=== PATIENT | male | born 1990 | race African-American/Black ===

== ENCOUNTER 2022-07-31 00:17 | Emergency (ER) | payer OTHER, MEDICAID ==
[~2022-07-31] VITALS: Ht 185.4 cm; Wt 104.3 kg
[2022-07-31 00:34] VITALS: BP_SYST 129
[2022-07-31] MEDS ORDERED: SULF1TAB48 PO (03:54)
[2022-07-31 04:17] VITALS: BP_SYST 132
== END 2022-07-31 04:15 | disposition home or self-care (01) ==
LOC: SED 00:17
DX: L60.0 Ingrowing nail (principal); R22.41 Localized swelling, mass and lump, right lower limb; Z79.899 Other long term (current) drug therapy
CPT/HCPCS: 99284

== ENCOUNTER 2023-03-15 11:33 | Emergency (ER) | payer OTHER, MEDICAID ==
[~2023-03-15] VITALS: Ht 185.4 cm; Wt 104.3 kg
[~2023-03-15 11:33] MED LIST: SULF1TAB48 PO
[2023-03-15 11:48] VITALS: BP_SYST 128
[2023-03-15] MEDS ORDERED: cefTRIAXone 500 MG in LIDOCAINE 1%, 20 ML MDV 1 ML IM ONE (12:00)
[2023-03-15] MEDS ORDERED: VALA10002 PO (12:03)
[2023-03-15] MEDS ORDERED: DOXY100T2 PO (12:03)
[2023-03-15 13:56] VITALS: BP_SYST 128
== END 2023-03-15 13:56 | disposition home or self-care (01) ==
LOC: SED 11:33
DX: K13.79 Other lesions of oral mucosa (principal); Z11.3 Encounter for screening for infections with a predominantly sexual mode of transmission; Z79.899 Other long term (current) drug therapy
CPT/HCPCS: 99283; 86592; 86701; 86702; 36415; 96372; 87491; J0696

== ENCOUNTER 2024-02-25 11:45 | Emergency (ER) | payer BC, MEDICAID ==
[~2024-02-25] VITALS: Ht 185.4 cm; Wt 95.3 kg
[~2024-02-25 11:45] MED LIST changes: +DOXY100T2 PO; +VALA10002 PO
[2024-02-25 12:01] VITALS: BP_SYST 125; PULSE 89; RESP 18; TEMP 98.2; O2SAT 97
[2024-02-25] MEDS ORDERED: DIPHTH,PERTUSS(ACELL),TET VAC 0.5 ML VIAL (Tdap) I.M. ONE (12:33)
[2024-02-25] MEDS: DIPHTH,PERTUSS(ACELL),TET VAC 0.5 ML VIAL (Tdap) I.M. ONE (12:42)
[2024-02-25] MEDS: ACETAMINOPHEN 325 MG TABLET PO ONE (12:57)
[2024-02-25] MEDS ORDERED: AMOX-520 PO (13:55)
[2024-02-25 14:46] VITALS: BP_SYST 128; PULSE 81; RESP 17; TEMP 98.2; O2SAT 98
== END 2024-02-25 14:46 | disposition home or self-care (01) ==
LOC: SED 11:45
DX: S01.112A Laceration without foreign body of left eyelid and periocular area, initial encounter (principal); S01.412A Laceration without foreign body of left cheek and temporomandibular area, initial encounter; S51.812A Laceration without foreign body of left forearm, initial encounter; S61.512A Laceration without foreign body of left wrist, initial encounter; S20.311A Abrasion of right front wall of thorax, initial encounter; Z23 Encounter for immunization; J32.8 Other chronic sinusitis; Z98.890 Other specified postprocedural states; Z79.899 Other long term (current) drug therapy; Z79.2 Long term (current) use of antibiotics; Y04.0XXA Assault by unarmed brawl or fight, initial encounter; Y93.89 Activity, other specified; Y92.098 Other place in other non-institutional residence as the place of occurrence of the external cause; Y99.8 Other external cause status
CPT/HCPCS: 70480; 90715; 99285